=== PATIENT | female | born 1945 | race Caucasian/White ===

== ENCOUNTER 2019-06-12 11:03 | Inpatient (IN) ==
--- NOTE | 2019-06-12 11:40 | Diag Imaging Result Doc PS360 ---
EXAM: CHEST-1 VIEW 06/12/2019 HISTORY: poss pneumothorax TECHNIQUE: AP upright chest at 1126 COMMENT: There is a large right pneumothorax which appears to be under tension with shift of the mediastinum to the left. There is increased atelectasis in the lingula. There is apparent adhesion of the apex of the lung to the lateral pleura. There is ill-defined opacity present in the right apex which was also present on 06/10/2019. IMPRESSION: Large right pneumothorax under tension. The findings were discussed with Babar Stewart MD at 06/12/2019 11:38 AM. Electronically signed by Lee Moncada 06/12/2019 11:38 AM
[2019-06-12] MEDS ORDERED: NS 1,000 ML IV ONE (11:53)
[2019-06-12] MEDS ORDERED: DIPRIVAN 1% IV ONE (11:59)
[2019-06-12 12:07] LABS: BASO# 0.11 X1000 (0.0-0.2); BASO% 0.6 % (0.0-0.8); EOS# 0.16 X1000 (0.0-0.7); EOS% 0.9 % (0.0-10.0); HEMATOCRIT 33.9 % (37.0-47.0); HEMOGLOBIN 10.2 g/dL (12.0-16.0); IMM GRAN# 0.21 X1000 (0.0-0.04); IMM GRAN% 1.2 % (0.0-0.5); LYMPH# 1.13 X1000 (1.2-3.4); LYMPH% 6.4 % (20.5-51.1); MCH 34.9 PG (27-31); MCHC 30.1 g/dL (33-37); MCV 116.1 FL (81-99); MONO% 6.3 % (1.7-9.3); MPV 8.7 FL (7.4-10.4); NEUT# 14.82 X1000 (1.4-6.5); NEUT% 84.6 % (42.2-75.2); PLT 401 X1000 (130-400); RBC 2.92 XMIL (4.2-5.4); RDW 16.9 % (11.5-14.5); WBC 17.53 X1000 (4.8-10.8)
[2019-06-12 12:19] LABS: INR 1.02; PROTIME 13.5 Seconds (11.0-16.0)
[2019-06-12 12:20] LABS: PTT 27.6 Seconds (22.3-41.8)
[2019-06-12 12:34] LABS: AGAP 14; ALB/GLOB RATIO 1.1; ALBUMIN 3.8 g/dL (3.5-5.0); ALKALINE PHOSPHATASE 91 U/L (32-104); BUN 26 mg/dL (8-22); CALCIUM 8.9 mg/dL (8.8-10.2); CHLORIDE 100 mmol/L (98-107); CK PROFILE 110 U/L (24-173); COSMO 278; CREATININE 0.9 mg/dL (0.5-0.9); ESTIMATED GFR > 60; GLUCOSE 149 mg/dL (70-104); GOT 24 U/L (10-30); GPT 10 U/L (10-36); POTASSIUM 4.9 mmol/L (3.5-5.1); SODIUM 135 mmol/L (136-145); TCO2 21 mmol/L (25-35); TOTAL PROTEIN 7.4 g/dL (6.3-8.3)
--- NOTE | 2019-06-12 13:13 | Diag Imaging Result Doc PS360 ---
EXAM: CHEST-1 VIEW 06/12/2019 HISTORY: CONFORMATION OF CHEST TUBE PLACEMENT TECHNIQUE: AP portable upright at 1255 COMMENT: There is a right chest tube. The pneumothorax which was present previously on 1126 has been evacuated. The cavitary mass in the right upper lobe is again noted. There is some residual atelectasis in the right middle lobe. IMPRESSION: Resolution of right pneumothorax. Electronically signed by Lee Moncada 06/12/2019 1:10 PM
--- NOTE | 2019-06-12 14:00 | Diag Imaging Result Doc PS360 ---
EXAM: CHEST-1 VIEW 06/12/2019 HISTORY: repeat for chest tube placement, decreased 02 sat TECHNIQUE: AP upright portable at 1348 COMMENT: The right chest tube is again noted. There is a small amount of residual apical pneumothorax. The cavitary mass in the right apex is again noted. There may be a small amount of fluid in the costophrenic sulcus. There is slightly increased interstitial markings in the lung bases compared to the previous study at 1255. IMPRESSION: Small right pleural effusion. Minimal right apical pneumothorax. Mild interstitial pulmonary edema. Electronically signed by Lee Moncada 06/12/2019 1:57 PM
[2019-06-12] MEDS ORDERED: MORPHINE IV ONE (16:32)
[2019-06-12 17:53] LABS: URINE SOURCE CLEAN CATCH
[2019-06-12] MEDS ORDERED: MORPHINE IV PRN ×2 (17:53→22:59)
[2019-06-12 18:03] LABS: BILIRUBIN URINE NEGATIVE (NEGATIVE); BLOOD URINE NEGATIVE (NEGATIVE); COLOR YELLOW; GLUCOSE URINE NEGATIVE (NEGATIVE); KETONE URINE NEGATIVE (NEGATIVE); LEUKOCYTES URINE TRACE (NEGATIVE); NITRITE URINE NEGATIVE (NEGATIVE); PROTEIN URINE TRACE mg/dL (NEGATIVE); SP GRAVITY URINE 1.018; TURBIDITY URINE CLEAR (CLEAR); UROBILINOGEN URINE NORMAL (NORMAL)
[2019-06-12 18:04] LABS: UR EPITHELIAL CELLS <10 /HPF (<10); URINE BACTERIA NEGATIVE /HPF; URINE RBC <10 /HPF (<10); URINE WBC <10 /HPF (<10)
--- NOTE | 2019-06-12 18:27 | HISTORY AND PHYSICAL ---
CHIEF COMPLAINT: Shortness of breath. This is a 73-year-old female, she has a history of small cell lung cancer. She underwent biopsy I think on the . Apparently she had a small pneumothorax at that time but it did not expand. She was asymptomatic. She was sent home. Since being at home of course she has had more shortness of breath. It progressed to severe shortness of breath. Today's chest x-ray on admission showed a large right pneumothorax consistent with tension pneumothorax and with mediastinal shift. Chest tube was placed per Dr. Stewart in the ER and she was admitted for further management. She is a patient of Dr. Ambriz, I am not sure who her primary doctor is, it is indicated but in any case. PAST MEDICAL HISTORY: Again small cell lung cancer. No clear COPD. Hypothyroidism but also reportedly in the past hypertension. SOCIAL HISTORY: She has a 40 pack year history of smoking. No alcohol. ALLERGIES: I do not think she is taking anything. She has no known drug allergies. FAMILY HISTORY: It looks like alcohol history in the past in her family not in herself, breast cancer in a mother. She has a son with type 2 diabetes. MEDICATIONS: She is on just Synthroid. REVIEW OF SYSTEMS: Otherwise negative x10 point review of systems. PHYSICAL EXAM: Blood pressure 142/81, heart rate of 88, respiratory rate 22, temperature was 98.5. GENERAL: Well-developed female in no distress. CARDIOVASCULAR: Regular rate and rhythm. PULMONARY: Bilateral breath sounds clear to auscultation. GI: Was soft, nontender, nondistended. Bowel sounds were positive. EXTREMITIES: No clubbing or cyanosis. LYMPHATIC: No peripheral edema. NEUROLOGICAL: Nonfocal . LABORATORY DATA: White count is 17, hemoglobin and hematocrit 10 and 33, platelets 401,000. Basic was okay. Urine is pending. Chest x-ray showed tension pneumo and then resolution of pneumo with chest tube placement. ASSESSMENT: 73-year-old female with small-cell lung cancer, possibly recurrent. We are waiting on her biopsy who presents from home with issues related to breathing consistent with tension pneumothorax which is probably iatrogenic although I do think she probably has some chronic obstructive pulmonary disease. 1. Tension pneumothorax. She has a chest tube. We will get surgery to assist with getting rid of the chest tube. 2. Acute hypoxic respiratory failure. I think she probably has some underlying chronic obstructive pulmonary disease, will continue breathing treatments, breathing exercises and follow. 3. Hypothyroidism, will check her thyroid function, continue regular medications. 4. Small cell lung cancer. We will let Dr. Ambriz know she is here and follow up on pathology results for other treatments. DISPOSITION: Pending her clinical status. cc: Hebert Rehman MD
[2019-06-12] MEDS ORDERED: ZOFRAN IV PRN (18:31)
[2019-06-12] MEDS ORDERED: DUONEB (A & A) INH PRN (18:31)
--- NOTE | 2019-06-12 20:29 | GENERAL SURGERY CONSULTATION ---
DATE: 06/12/2019 CHIEF COMPLAINT: Shortness of breath. REASON FOR CONSULTATION: Right-sided pneumothorax chest tube. HISTORY OF PRESENT ILLNESS: This 73-year-old female who had a recent biopsy for a right-sided lung mass on Sunday. She had a small pneumothorax postop. She developed increased shortness of breath yesterday and it became more severe today. She came to the ER where a large right-sided pneumothorax with tension changes was found. Chest tube was placed by Dr. Stewart in the emergency department. I was consulted for management. MEDICAL HISTORY: Extensive smoking history with oblique presumed small cell lung cancer. No diagnosis of COPD, but she does have emphysematous changes, hypothyroidism, and hypertension. SURGICAL HISTORY: She has had no thoracic procedures, recent chest tube. Denies any vascular procedures. SOCIAL HISTORY: Forty pack year smoking. No alcohol. FAMILY HISTORY: Reviewed and noncontributory. REVIEW OF SYSTEMS: A 10-point review of systems performed and negative otherwise mentioned in the HPI. PHYSICAL EXAMINATION: Vital signs: She is afebrile. Pulse is 89, blood pressure 146/81, oxygen saturation 94% on 4 L. General: She is chronically ill-appearing, but in no acute distress. HEENT: No scleral icterus. No cervical mass. Cardiovascular: Normal rate. Pulmonary: She has a right-sided chest tube to -20 suction. There is an occasional mild air leak that goes away with the place of water seal. No output. Chest tube dressings in place. Abdomen: Soft, nontender. Integument: Warm and dry. Musculoskeletal: She is cachectic. Psychiatric: Appropriate affect. Neurologic: No gross deficits. Lymphatic: No cervical or inguinal adenopathy. LABORATORIES: White count 17, hematocrit 33, platelets 401,000. INR is 1.02, creatinine 0.9. LFTs are normal. Albumin is 3.8. Urinalysis does show trace leukocytes. I reviewed her pre and post chest tube placement x-rays. Shows a large right-sided pneumothorax, mediastinal shift and then subsequent resolution after chest tube placed. ASSESSMENT AND PLAN: This is a 73-year-old female with pneumothorax after percutaneous lung biopsy. She has chest tube placed by the emergency staff. We will follow this. If her x-ray shows good expansion tomorrow we will water seal the tube and possibly removed 24 hours later. We will continue respiratory therapy with nebulizer treatments, pulmonary toileting. I will follow along. cc: Desi Schwartz MD
[2019-06-12] MEDS: DUONEB (A & A) INH SCH (22:03)
[2019-06-12] MEDS: MORPHINE IV PRN (23:15)
[2019-06-13] MEDS: DUONEB (A & A) INH SCH ×4 (04:00→21:50)
[2019-06-13 07:07] LABS: BASO# 0.06 X1000 (0.0-0.2); BASO% 0.6 % (0.0-0.8); EOS# 0.32 X1000 (0.0-0.7); EOS% 2.9 % (0.0-10.0); HEMATOCRIT 31.3 % (37.0-47.0); IMM GRAN# 0.05 X1000 (0.0-0.04); IMM GRAN% 0.5 % (0.0-0.5); LYMPH# 0.81 X1000 (1.2-3.4); LYMPH% 7.5 % (20.5-51.1); MCHC 28.8 g/dL (33-37); MCV 118.1 FL (81-99); MONO# 0.77 X1000 (0.11-0.59); MONO% 7.1 % (1.7-9.3); MPV 8.8 FL (7.4-10.4); NEUT# 8.84 X1000 (1.4-6.5); NEUT% 81.4 % (42.2-75.2); PLT 352 X1000 (130-400); RBC 2.65 XMIL (4.2-5.4); RDW 16.9 % (11.5-14.5); WBC 10.85 X1000 (4.8-10.8)
[2019-06-13 07:31] LABS: AGAP 11; ALB/GLOB RATIO 0.9; ALBUMIN 3.3 g/dL (3.5-5.0); ALKALINE PHOSPHATASE 87 U/L (32-104); BUN 19 mg/dL (8-22); CHLORIDE 107 mmol/L (98-107); COSMO 289; CREATININE 0.8 mg/dL (0.5-0.9); ESTIMATED GFR > 60; GLUCOSE 130 mg/dL (70-104); GOT 16 U/L (10-30); GPT 7 U/L (10-36); SODIUM 143 mmol/L (136-145); TCO2 25 mmol/L (25-35); TOTAL BILIRUBIN 0.36 mg/dL (0.20-1.00); TOTAL PROTEIN 6.9 g/dL (6.3-8.3)
[2019-06-13 07:32] LABS: EOS 2 % (1-10); LYMPHS 10 % (21-51); MONO 7 % (1-9); SEGS 81 % (42-75)
[2019-06-13] MEDS ORDERED: BLISTEX MEDICATED BERRY LIP BALM TOP PRN (07:35)
--- NOTE | 2019-06-13 10:06 | Diag Imaging Result Doc PS360 ---
EXAM: CHEST-PORTABLE 06/13/2019 HISTORY: ptx TECHNIQUE: AP portable upright at 1054 COMMENT: There is a chest tube on the right. The pneumothorax which has been previously described has increased in size, measuring 9 mm at the apex and also being visible at the base, which was not previously the case. There is no evidence of shift of the mediastinum. There is increased atelectasis in the right lower lobe. There continues to be increased interstitial markings generally. IMPRESSION: Worsened right pneumothorax. Electronically signed by Lee Moncada 06/13/2019 10:04 AM
--- NOTE | 2019-06-13 11:13 | PROGRESS NOTE ---
DATE: 06/13/2019 SUBJECTIVE: Overall, Ms. Meyer appears to be doing well and has no immediate complaints. She presented to the emergency department with severe shortness of breath secondary to a lung biopsy that was performed on Sunday of this week. Chest x-ray in the emergency department revealed a tension pneumothorax that caused the right lung to collapse, which quickly prompted the emergency department to place a chest tube into her right pleural cavity in hopes of reinflating the lung. The procedure had no immediate complications, and she was quickly transferred to the [facility] for resolution of the pneumothorax. Questioning of the patient revealed that she is in no apparent distress. She reports no symptoms of shortness of breath. She is alert and oriented to time and place, and is in good spirits given her diagnosis of small cell lung cancer that she has been battling for the previous 2 years. REVIEW OF SYSTEMS: A 10 point review of systems was conducted with the patient and pertinent positives were listed above in the HPI. OBJECTIVE: Cardiovascular: Heart clear to murmurs, rubs and gallops. Pulmonary: Yesterday, a chest x-ray revealed that the chest tube placed in the emergency department was in the correct place in the pleural cavity, and was beginning to resolve the tension pneumothorax. However, this morning a repeat chest x-ray revealed that the pneumothorax has increased in size, measuring at 9 mm to the apex with increased atelectasis in the right lower lobe, which the radiology team believes indicates that her right pneumothorax has worsened since her admission to the emergency department. I did not go over or psychotherapist counselor the patient on these results seeing as she appears to be doing well and in no acute distress and has no complaints of shortness of breath. I will leave this to the physicians to do in hopes that by the time we return to evaluate Ms. Meyer again, hopefully her pneumothorax will resolve. Vital signs: Most recent vital signs include a pulse rate of 63, respiratory rate of 15, a temperature of 97.9 degrees and blood pressure of 137/72, an O2 saturation by pulse oximetry of 96. LABORATORY STUDIES: Hematologic studies include a white blood cell count of 10.85 and a red blood cell count of 2.65, a hemoglobin of 9, a hematocrit of 31.3, an MCV of 118.1 and MCH of 34, a platelet count of 352. Pertinent chemistry studies include a blood sodium of 143, potassium of 4, chloride of 107, carbon dioxide of 25, and anion gap of 11. A BUN of 19 and creatinine of 0.8. Her blood glucose was mildly elevated at 130 and her calcium was 8. A urinalysis performed yesterday revealed trace protein in the urine and trace urine leukocytes. ASSESSMENT AND PLAN: 1. Worsening right-sided tension pneumothorax. It is concerning that the chest x-ray revealed that her lung continues to get worse, even though she exhibits no complaints of shortness of breath, no difficulty breathing or a decline in pulse oximetry. We will consult Surgery in hopes that management of the chest tube again will cause her lung pneumothorax to resolve. 2. Potential urinary tract infection. Her positive leukocytes within the urine that was collected in the emergency department yesterday is concerning, seeing as this is an elderly patient with a pneumothorax with ongoing battles with small-cell lung cancer, who is on chemotherapy. A urinary tract infection would certainly worsen Ms. Meyer's prognosis if it were to become severe. I would recommend repeating a clean-catch urinalysis to evaluate if there is any acute infection within the urinary tract and pending those results, probably treat if there is an infection. Thank you very much for allowing me to be your student and thank you for allowing me to see this patient. Dictated by Lena Griffin Medical Student for Hebert Rehman MD This chart was documented by, Lena Griffin Medical Student and accurately reflects the services performed, treatment plan and medical decisions as attested by the providers signature Hebert Rehman MD. cc: Hebert Rehman MD MTDD
--- NOTE | 2019-06-13 11:31 | GENERAL SURGERY PROGRESS NOTE ---
DATE: 06/13/2019 SUBJECTIVE: Feels better. She is still on supplemental O2. No fevers, no tachycardia overnight. Chest tube is in place. There is no air leak. Minimal output. OBJECTIVE: I reviewed her labs, reviewed her x-ray. It shows increased pneumothorax this morning when compared to yesterday evening after chest tube placement. The sentinel hole is within chest wall, but it is closes. ASSESSMENT AND PLAN: A 73-year-old female with right-sided pneumothorax after percutaneous lung biopsy. She had a chest tube placed by the emergency department. The tube seems to be controlling the pneumothorax well last night, but her lungs have fallen away. I did increase the suction to -40. There were some air bubbles at this point, but she did not have an air leak. She from a hemodynamic and respiratory standpoint is near her baseline. We will keep the tube to suction -40 today. Repeat her chest x-ray in the morning. Unfortunately, she may ultimately require a more inferiorly and posteriorly placed chest tube, which we could do in the operating room if it fails to resolve with this current tube. Dr. Waters is occupational therapist assistants this weekend, and he will follow the patient. I have given him sign-out on her. cc: Desi Schwartz MD
[2019-06-13] MEDS: MORPHINE IV PRN ×2 (12:22→20:35)
[2019-06-13] MEDS: TYLENOL PO PRN ×2 (12:23→20:35)
--- NOTE | 2019-06-13 17:15 | HEMO/ONC CONSULTATION ---
DATE: 06/13/2019 ADMITTING PHYSICIAN: Dr. Rehman. REQUESTING PHYSICIAN: Dr. Rehman. We appreciate this consult. CHIEF COMPLAINT: Non-small cell lung cancer. HISTORY OF PRESENT ILLNESS: Ms. Kenya Meyer is a pleasant 73-year-old female well known to Dr. Ambriz with a history of non-small cell lung cancer, squamous cell type, status post 2 cycles of Gemzar and Taxotere with worsening disease. The patient underwent a CT-guided biopsy of the nodule and suffered a tension pneumothorax which began very small but progressively worsened. She was referred to [facility] Emergency Department where she was found to have a large pneumothorax and chest tube was placed in the ER. The patient has had improvement, but today has increasing pneumothorax volume. Surgery is currently following. We are consulted as the patient is well known to us. PAST MEDICAL HISTORY: 1. Non-small cell lung cancer, squamous cell type. 2. Hypothyroidism. 3. Hypertension. SOCIAL HISTORY: The patient has a 40 pack-year history of smoking. She does not use alcohol or illicit drugs. FAMILY HISTORY: Significant for breast cancer in the patient's mother. MEDICATIONS ON ADMISSION: Synthroid. ALLERGIES: The patient has no known drug allergies. REVIEW OF SYSTEMS: A 14 point review of systems was obtained and is negative except for mentioned in HPI. PHYSICAL EXAMINATION: General: Ms. Meyer is a pleasant 73-year-old female, lying supine in bed in no immediate distress. Vital Signs: Temperature 97.9 degrees, blood pressure 137/72, heart rate 63, respirations are 15, O2 saturation is 96% on 5 L nasal cannula O2. HEENT: Normocephalic, atraumatic. Mucous membranes slightly pale and moist. Sclerae is anicteric. Extraocular movements intact. Neck: Supple. Lungs: Clear to auscultation bilaterally except for right lower lobe with decreased breath sounds. Abdomen: Soft, nondistended, nontender. Bowel sounds positive all quadrants. No rebound or guarding noted. Extremities: Without clubbing, cyanosis, or edema. Dermatologic: No rashes, bruises or lesions. Neurologic: The patient is awake, alert, oriented x3. She has no focal deficit. LABORATORY DATA: Hemoglobin 9.0, hematocrit 31.3, white blood cell count is 10.85, platelets 352,000. Sodium 143, potassium 4.0, chloride 107, CO2 is 25, BUN 19, creatinine 0.8 and glucose is 130, calcium is 8.0. TSH is 13.09. ASSESSMENT AND PLAN: 1. Non-small cell lung cancer of squamous cell type, status post 2 cycles of Gemzar and Taxotere with worsening disease. The patient is status post CT-guided biopsy of nodule, pathology is pending. 2. Tension pneumothorax status post chest tube placement with worsening on today's chest x-rays. Surgery is currently following. 3. Acute hypoxemic respiratory failure. Would continue breathing treatments and spirometer. Stable at this time. 4. Hypothyroidism, stable. 5. We will follow along with you and make further recommendations pending outcomes. The above reflects the history, exam, assessment, and plan of Dr. Ambriz. Dictated by WILLIE Vernon for Adam Ambriz MD cc: WILLIE Vernon MD
[2019-06-14 00:32] LABS: URINE SOURCE CLEAN CATCH
[2019-06-14 00:40] LABS: BILIRUBIN URINE NEGATIVE (NEGATIVE); BLOOD URINE NEGATIVE (NEGATIVE); COLOR YELLOW; GLUCOSE URINE NEGATIVE (NEGATIVE); KETONE URINE NEGATIVE (NEGATIVE); LEUKOCYTES URINE SMALL (NEGATIVE); NITRITE URINE NEGATIVE (NEGATIVE); PH URINE 6.5; PROTEIN URINE TRACE mg/dL (NEGATIVE); SP GRAVITY URINE 1.017; TURBIDITY URINE CLEAR (CLEAR); UR EPITHELIAL CELLS <10 /HPF (<10); URINE BACTERIA NEGATIVE /HPF; URINE RBC <10 /HPF (<10); URINE WBC <10 /HPF (<10); UROBILINOGEN URINE NORMAL (NORMAL)
[2019-06-14] MEDS ORDERED: LOVENOX SUBQ SCH (06:00)
[2019-06-14] MEDS: SYNTHROID PO SCH (06:02)
[2019-06-14] MEDS: DUONEB (A & A) INH SCH ×4 (06:28→22:32)
[2019-06-14 06:29] LABS: BASO# 0.04 X1000 (0.0-0.2); BASO% 0.3 % (0.0-0.8); EOS# 0.68 X1000 (0.0-0.7); EOS% 4.5 % (0.0-10.0); HEMATOCRIT 32.8 % (37.0-47.0); HEMOGLOBIN 9.6 g/dL (12.0-16.0); IMM GRAN# 0.05 X1000 (0.0-0.04); IMM GRAN% 0.3 % (0.0-0.5); LYMPH% 3.3 % (20.5-51.1); MCH 34.4 PG (27-31); MCHC 29.3 g/dL (33-37); MCV 117.6 FL (81-99); MONO# 1.28 X1000 (0.11-0.59); MONO% 8.4 % (1.7-9.3); MPV 8.9 FL (7.4-10.4); NEUT# 12.62 X1000 (1.4-6.5); NEUT% 83.2 % (42.2-75.2); PLT 352 X1000 (130-400); RBC 2.79 XMIL (4.2-5.4); RDW 16.9 % (11.5-14.5); WBC 15.17 X1000 (4.8-10.8)
[2019-06-14 06:49] LABS: AGAP 11; BUN 13 mg/dL (8-22); CALCIUM 8.5 mg/dL (8.8-10.2); CHLORIDE 105 mmol/L (98-107); COSMO 285; CREATININE 0.7 mg/dL (0.5-0.9); ESTIMATED GFR > 60; GLUCOSE 136 mg/dL (70-104); SODIUM 142 mmol/L (136-145); TCO2 26 mmol/L (25-35)
--- NOTE | 2019-06-14 08:31 | Diag Imaging Result Doc PS360 ---
EXAM: CHEST-PORTABLE INDICATION: dyspnea TECHNIQUE: One view COMPARISON: 06/13/2019 FINDINGS: The right chest tube is in stable position. The right-sided pneumothorax has decreased significantly during the interval. It is barely perceptible at the right lung apex. There is now an increase in fluid at the right lung base, however. Increased interstitial markings bilaterally are unchanged. Cardiac silhouette is stable. IMPRESSION: Interval improvement of pneumothorax on the right but increase in pleural fluid at the right lung base. Electronically signed by Shahab Serna 06/14/2019 8:28 AM
[2019-06-14] MEDS ORDERED: SYNTHROID PO SCH (09:00)
[2019-06-14] MEDS: TYLENOL PO PRN (13:47)
--- NOTE | 2019-06-14 15:48 | PROGRESS NOTE ---
DATE: 06/14/2019 SUBJECTIVE: Patient has no major complaints. OBJECTIVE: Blood pressure 136/68, heart rate of 107, respiratory rate of 17, temperature 98.5 degrees, 98% on 3 L.Cardiovascular: Regular rate and rhythm. Pulmonary: Bilateral breath sounds clear to auscultation. GI: Soft, nontender, nondistended. Bowel sounds were positive. Extremity: No clubbing or cyanosis. Lymphatic Exam: No peripheral edema. Neurological: Nonfocal. LABORATORY DATA: White count is 15, hemoglobin and hematocrit 9 and 32, platelets 352,000. PROBLEM LIST: 1. Pneumothorax, likely iatrogenic after lung biopsy. Her chest x-ray today though looks much improved so I feel good about treatment. We will continue to monitor. Surgery is consulted. So, really kind of awaiting their recommendations hopefully to water-seal soon at their discretion. 2. Small cell lung cancer. Aware. Treatment on hold. She is getting chemotherapy. She is having a little bit of hemoptysis. I am going to hold her Lovenox for 24 hours but we will need to reconsider starting it if stable because she is high risk for DVT. 3. Possible UTI. We are still waiting on culture results. She is not on any antibiotics. She does have a white count, may start Rocephin empirically just until we get the kidney data back. DISPOSITION: Pending her clinical status. She also has a fairly significant O2 requirement, so we will continue to follow. cc: Hebert Rehman MD
[2019-06-14] MEDS: MIRALAX PO SCH (15:58)
[2019-06-14] MEDS: ROCEPHIN 1 GM in NS 50 ML IV SCH (15:58)
[2019-06-14] MEDS: LACTULOSE PO SCH (20:06)
--- NOTE | 2019-06-14 20:14 | GENERAL SURGERY PROGRESS NOTE ---
DATE: 06/14/2019 SUBJECTIVE: The patient feels better today. She denies shortness of breath. OBJECTIVE: She is afebrile. Vital signs are stable.General: She is awake and alert, in no acute distress. Respiratory: Bilateral breath sounds. No work of breathing. No air leak in the chest tube. IMAGING: The chest x-ray shows improvement in the pneumothorax, but increase in the right basilar effusion. ASSESSMENT AND PLAN: A 73-year-old female with right pneumothorax, status post chest tube placement. Overall the placement is marginal, but it appears to be helping resolve the pneumothorax. We will continue with suction at -40 and repeat chest x-ray tomorrow. cc: Phoenix Waters MD
[2019-06-14] MEDS: NORCO-7.5 PO PRN (22:41)
[2019-06-15] MEDS: DUONEB (A & A) INH SCH ×4 (05:43→23:01)
[2019-06-15 05:56] LABS: BASO# 0.04 X1000 (0.0-0.2); BASO% 0.2 % (0.0-0.8); EOS% 6.2 % (0.0-10.0); HEMATOCRIT 32.9 % (37.0-47.0); HEMOGLOBIN 9.6 g/dL (12.0-16.0); IMM GRAN# 0.05 X1000 (0.0-0.04); IMM GRAN% 0.3 % (0.0-0.5); LYMPH% 4.7 % (20.5-51.1); MCHC 29.2 g/dL (33-37); MCV 116.7 FL (81-99); MONO# 1.41 X1000 (0.11-0.59); MONO% 7.3 % (1.7-9.3); MPV 8.9 FL (7.4-10.4); NEUT# 15.69 X1000 (1.4-6.5); NEUT% 81.3 % (42.2-75.2); PLT 321 X1000 (130-400); RBC 2.82 XMIL (4.2-5.4); RDW 16.8 % (11.5-14.5); WBC 19.29 X1000 (4.8-10.8)
[2019-06-15 06:09] LABS: AGAP 9; BUN 14 mg/dL (8-22); CALCIUM 8.1 mg/dL (8.8-10.2); CHLORIDE 105 mmol/L (98-107); COSMO 283; CREATININE 0.7 mg/dL (0.5-0.9); ESTIMATED GFR > 60; GLUCOSE 117 mg/dL (70-104); POTASSIUM 4.4 mmol/L (3.5-5.1); SODIUM 141 mmol/L (136-145); TCO2 27 mmol/L (25-35)
[2019-06-15 06:37] LABS: EOS 5 % (1-10); LYMPHS 5 % (21-51); MONO 6 % (1-9); SEGS 84 % (42-75)
[2019-06-15] MEDS: SYNTHROID PO SCH (06:42)
--- NOTE | 2019-06-15 08:17 | Diag Imaging Result Doc PS360 ---
EXAM: CHEST-PORTABLE INDICATION: dyspnea TECHNIQUE: One view COMPARISON: 06/14/2019 FINDINGS: The right chest tube is in stable position with the tip just within the thoracic cavity. No discrete residual pneumothorax can be identified on the current study. Small volume pleural fluid at the right lung base is again noted. Patchy consolidation throughout the right lung is approximately stable given slight differences in positioning. Consolidation at the left lower lung zone has improved slightly. IMPRESSION: Slight improvement on the left. No visible right pneumothorax is appreciated on the current study. Stable chest, otherwise. Electronically signed by Shahab Serna 06/15/2019 8:15 AM
[2019-06-15] MEDS: MIRALAX PO SCH (10:24)
[2019-06-15] MEDS: LACTULOSE PO SCH ×2 (10:25→20:01)
[2019-06-15] MEDS: NORCO-7.5 PO PRN (10:25)
[2019-06-15] MEDS: ROCEPHIN 1 GM in NS 50 ML IV SCH (15:18)
--- NOTE | 2019-06-15 16:17 | PROGRESS NOTE ---
DATE: 06/15/2019 SUBJECTIVE: Patient has no major complaints. She is looking pretty good. LABORATORY: White count is 19, hemoglobin and hematocrit 9.9 and 32, platelets 321,000. I am not sure if this is related to Neulasta. She has had 2 cycles of Gemzar and Taxotere, so I am not sure if she has had GCSF agent given, but in any case. Basic was normal. PROBLEM LIST: 1. Pneumothorax. She looks like she is doing better. X-rays better. Hopefully, we can decrease her pressures. 2. Recurrent small cell lung cancer. She is status post chemotherapy. We are going to continue to monitor. 3. Possible urinary tract infection. Urine cultures negative but her white count is still elevated. I will keep her on Rocephin for the time being, but I do not think she has a clear infection right now in any case. cc: Hebert Rehman MD
--- NOTE | 2019-06-16 04:02 | GENERAL SURGERY PROGRESS NOTE ---
DATE: 06/15/2019 SUBJECTIVE: The patient has no new complaints today. She is breathing without difficulty. OBJECTIVE: Vital Signs: She is afebrile. Vital signs are stable. General: She is awake, alert, no acute distress. Respiratory: Bilateral equal breath sounds. No work of breathing. Chest tube was without air leak. IMAGING: Chest x-ray shows no pneumothorax. ASSESSMENT AND PLAN: A 73-year-old female with a right-sided pneumothorax which appears to be improved or resolved after chest tube placement. We will decrease the suction down to -20 tonight. cc: Phoenix Waters MD
[2019-06-16] MEDS: DUONEB (A & A) INH SCH ×4 (05:29→22:30)
[2019-06-16] MEDS: SYNTHROID PO SCH ×2 (05:39→06:19)
--- NOTE | 2019-06-16 06:43 | Diag Imaging Result Doc PS360 ---
CHEST-PORTABLE - 06/16/2019 INDICATION: dyspnea COMPARISON: 06/15/2019 FINDINGS: Stable dense focal infiltrate at the right hilum. Stable pulmonary scarring. Stable cavitary area in the right lung apex. Stable severe COPD. Stable nodular density in the left lung. IMPRESSION: No change from prior. Electronically signed by Pankaj Mcdonough 06/16/2019 6:40 AM
[2019-06-16] MEDS: LACTULOSE PO SCH ×2 (09:58→20:07)
[2019-06-16] MEDS: MIRALAX PO SCH (09:59)
[2019-06-16] MEDS: ROCEPHIN 1 GM in NS 50 ML IV SCH (16:16)
[2019-06-16] MEDS ORDERED: NS 500 ML ONE (16:30)
--- NOTE | 2019-06-16 16:56 | PROGRESS NOTE ---
DATE: 06/16/2019 SUBJECTIVE: She looks well, like more energy. OBJECTIVE: Vital Signs: Blood pressure 116/68, heart rate of 108, respiratory rate 16, temperature 98.7 degrees, 100% on 3 L. Cardiovascular: Regular rate and rhythm. Pulmonary: Bilateral breath sounds clear to auscultation. GI: Soft, nontender, nondistended. Bowel sounds are positive. LABORATORY: White count 19, hemoglobin 9 and hematocrit 32, platelets 321,000. Basic is normal. PROBLEM LIST: 1. Pneumothorax. She is iatrogenic. X-rays look better. Hopefully tomorrow, she is on water- seal now, we will be able to remove her tube. 2. Recurrent small cell lung cancer. She is on chemotherapy. We will continue to monitor closely. 3. Possible urinary tract infection. Her urine culture is negative, so I think it is less likely and I am not entirely sure her white count may not be related to other processes, but will repeat tomorrow. If stable, I may go ahead and stop antibiotics and anticipate discharge hopefully in the next 1 to 2 days. cc: Hebert Rehman MD
--- NOTE | 2019-06-16 16:58 | GENERAL SURGERY PROGRESS NOTE ---
DATE: 06/16/2019 SUBJECTIVE: She feels okay. She has continued to have a productive cough, but no significant shortness of breath. Stable on nasal cannula. OBJECTIVE: Vital Signs: No fevers. Pulse in the 90s, low 100s, blood pressure 116/68. General: She is alert. Right chest tube is in place. It is to -20 with no air leak minimal output. DIAGNOSTIC DATA: White count 19, hematocrit 32 creatinine 0.7. I reviewed her x-ray this morning and shows persistent chronic changes, no evidence of pneumothorax. ASSESSMENT AND PLAN: This is a 71-year-old female with right-sided pneumothorax after percutaneous biopsy. We will water seal her tube today and then remove it if her lung remains expanded. I do not detect air leak. cc: Desi Schwartz MD
[2019-06-17] MEDS: DUONEB (A & A) INH SCH ×4 (03:53→22:31)
[2019-06-17] MEDS: SYNTHROID PO SCH (06:13)
[2019-06-17 07:06] LABS: BASO# 0.04 X1000 (0.0-0.2); BASO% 0.4 % (0.0-0.8); EOS# 1.32 X1000 (0.0-0.7); EOS% 12.5 % (0.0-10.0); HEMATOCRIT 33.1 % (37.0-47.0); HEMOGLOBIN 9.6 g/dL (12.0-16.0); IMM GRAN# 0.04 X1000 (0.0-0.04); IMM GRAN% 0.4 % (0.0-0.5); LYMPH# 0.75 X1000 (1.2-3.4); LYMPH% 7.1 % (20.5-51.1); MCH 33.7 PG (27-31); MCV 116.1 FL (81-99); MONO# 0.81 X1000 (0.11-0.59); MONO% 7.6 % (1.7-9.3); MPV 8.8 FL (7.4-10.4); NEUT# 7.63 X1000 (1.4-6.5); PLT 350 X1000 (130-400); RBC 2.85 XMIL (4.2-5.4); RDW 16.2 % (11.5-14.5); WBC 10.59 X1000 (4.8-10.8)
[2019-06-17 07:29] LABS: AGAP 10; BUN 15 mg/dL (8-22); CALCIUM 7.6 mg/dL (8.8-10.2); CHLORIDE 101 mmol/L (98-107); COSMO 277; CREATININE 0.7 mg/dL (0.5-0.9); ESTIMATED GFR > 60; GLUCOSE 112 mg/dL (70-104); POTASSIUM 3.8 mmol/L (3.5-5.1); SODIUM 138 mmol/L (136-145); TCO2 27 mmol/L (25-35)
--- NOTE | 2019-06-17 08:52 | Diag Imaging Result Doc PS360 ---
CHEST-PORTABLE - 06/17/2019 INDICATION: ptx COMPARISON: 06/16/2019 FINDINGS: The right chest tube has been pulled out and is in the soft tissues. There is no visible pneumothorax. Lung volumes are improved. There are worsening right perihilar and right lower lobe infiltrates. Stable hazy interstitial infiltrates in the lung bases. Heart size remains grossly normal. IMPRESSION: 1. Right chest tube has been pulled out and ends in the soft tissues. No pneumothorax. 2. Worsening multifocal infiltrates in the right lung. Electronically signed by Pankaj Mcdonough 06/17/2019 8:49 AM
[2019-06-17] MEDS: NORCO-7.5 PO PRN (09:25)
[2019-06-17] MEDS: LACTULOSE PO SCH ×2 (09:25→21:04)
[2019-06-17] MEDS: MIRALAX PO SCH (09:25)
--- NOTE | 2019-06-17 15:24 | Diag Imaging Result Doc PS360 ---
CHEST-PORTABLE - 06/17/2019 3:13 PM INDICATION: chest tube removal COMPARISON: 8:35 AM FINDINGS: The right chest tube has been removed. No definite pneumothorax. There is continued worsening infiltrate diffusely throughout the right lung, and also in the left lung base. Heart size is top normal. No pneumothorax or pleural effusion. IMPRESSION: Right chest tube removal with no definite pneumothorax. Worsening diffuse bilateral infiltrates suggesting pulmonary edema and/or pneumonia. Electronically signed by Pankaj Mcdonough 06/17/2019 3:22 PM
[2019-06-17] MEDS: ROCEPHIN 1 GM in NS 50 ML IV SCH (15:50)
--- NOTE | 2019-06-17 17:40 | PROGRESS NOTE ---
DATE: 06/17/2019 SUBJECTIVE: Patient has no major complaints. OBJECTIVE: Vital signs: Blood pressure is 101/47, heart rate 94, respiratory rate 18, temperature 97.4 degrees. Cardiovascular: Regular rate and rhythm. Pulmonary: Bilateral breath sounds. Clear to auscultation. GI: Soft, nontender, nondistended. Bowel sounds are positive. LABORATORY: White count is 10, hemoglobin and hematocrit 9 and 33, platelets 350,000. Basic was normal. Chest x-ray showed no pneumonia, but she did have some multifocal infiltrates. PLAN: I am going to start her on some antibiotics and we may give her a dose of Lasix too because she has interstitial infiltrates developing there. Repeat chest x-ray and labs in the morning and then assess about discharge. cc: Hebert Rehman MD
[2019-06-17] MEDS: LASIX IV SCH (18:06)
--- NOTE | 2019-06-17 18:53 | GENERAL SURGERY PROGRESS NOTE ---
DATE: 06/17/2019 SUBJECTIVE: Feels better. Still coughing quite a productive cough. Chest x-ray this morning shows good expansion of the right lung with worsening infiltrates. Chest tube is in the soft tissues. PHYSICAL EXAMINATION: Chest: Chest tube is in the soft tissue. I removed it. An occlusive dressing was placed. LAB AND X-RAY DATA: Follow-up chest x-ray shows good expansion of the lungs. Her white count was 10 this morning, hematocrit 33, creatinine 0.7, and there is no reaccumulation of pneumothorax following chest x-ray. PLAN: Continue occlusive dressing for 48 hours to 72 hours. Antibiotics for pneumonia. Aggressive pulmonary toileting. cc: Desi Schwartz MD
[2019-06-17] MEDS: MAXIPIME 2 GM/NS 2 GM/100 ML IVPB IV SCH (20:58)
[2019-06-18] MEDS: DUONEB (A & A) INH SCH ×4 (03:30→15:25)
[2019-06-18] MEDS: SYNTHROID PO SCH (06:05)
--- NOTE | 2019-06-18 07:12 | Diag Imaging Result Doc PS360 ---
EXAM: CHEST-PORTABLE 06/18/2019 HISTORY: dyspnea TECHNIQUE: AP portable at 0631 COMMENT: There are patchy alveolar opacities in the right lower lobe and middle lobe and apparent ill-defined cavitary opacity in the right apex. These findings were all present on 06/17/2019. There is a lesser degree of ill-defined opacification in the lingula and left lower lobe which is also stable in appearance. Compared to the previous examination of 06/16/2019 there may be some improvement with regard to pneumatization of the right base. IMPRESSION: Pneumonia, particularly on the right with cavitary lesion in the right apex. The possibility of coexistent pulmonary edema cannot be excluded. Electronically signed by Lee Moncada 06/18/2019 7:09 AM
[2019-06-18 07:43] LABS: BASO# 0.02 X1000 (0.0-0.2); BASO% 0.2 % (0.0-0.8); EOS% 12.4 % (0.0-10.0); HEMATOCRIT 32.8 % (37.0-47.0); HEMOGLOBIN 9.5 g/dL (12.0-16.0); IMM GRAN# 0.03 X1000 (0.0-0.04); IMM GRAN% 0.3 % (0.0-0.5); LYMPH# 0.92 X1000 (1.2-3.4); LYMPH% 9.5 % (20.5-51.1); MCH 33.3 PG (27-31); MCV 115.1 FL (81-99); MONO# 0.79 X1000 (0.11-0.59); MONO% 8.2 % (1.7-9.3); MPV 8.8 FL (7.4-10.4); NEUT# 6.69 X1000 (1.4-6.5); NEUT% 69.4 % (42.2-75.2); PLT 370 X1000 (130-400); RBC 2.85 XMIL (4.2-5.4); RDW 16.2 % (11.5-14.5); WBC 9.65 X1000 (4.8-10.8)
[2019-06-18 08:04] LABS: BANDS 2 % (0-1); EOS 14 % (1-10); LYMPHS 10 % (21-51); MONO 10 % (1-9); SEGS 64 % (42-75)
[2019-06-18 08:13] LABS: AGAP 12; BUN 17 mg/dL (8-22); CALCIUM 7.8 mg/dL (8.8-10.2); CHLORIDE 100 mmol/L (98-107); COSMO 282; CREATININE 0.8 mg/dL (0.5-0.9); ESTIMATED GFR > 60; GLUCOSE 116 mg/dL (70-104); POTASSIUM 3.7 mmol/L (3.5-5.1); SODIUM 140 mmol/L (136-145); TCO2 28 mmol/L (25-35)
[2019-06-18] MEDS: MIRALAX PO SCH (09:22)
[2019-06-18] MEDS: LACTULOSE PO SCH ×2 (09:22→20:46)
[2019-06-18] MEDS: LASIX IV SCH (09:22)
[2019-06-18] MEDS: MAXIPIME 2 GM/NS 2 GM/100 ML IVPB IV SCH ×2 (09:22→20:45)
--- NOTE | 2019-06-18 16:59 | GENERAL SURGERY PROGRESS NOTE ---
DATE: 06/18/2019 SUBJECTIVE: Still having a very productive cough, O2 requirement, and is a little weak. OBJECTIVE: She is afebrile. Heart rate is 89 to low 100s. Blood pressure 104/59. Oxygen saturation 96%. She is on nasal cannula 3 to 4 L.General: She is alert, no increased work of breathing. Cardiovascular: Normal rate. LABORATORY DATA: I reviewed her labs. White count is 9, hematocrit 32, creatinine 0.8. IMAGING: I reviewed her x-ray, shows persistent pneumonia in the right apex, it is possible this is a mass and there is possibility of some edema. She is being diuresed. ASSESSMENT AND PLAN: A 73-year-old female, status post chest tube placement by the ER for iatrogenic pneumothorax after percutaneous lung biopsy. She has pneumonia and apparent pulmonary edema. She is being diuresed and treated for this, otherwise continue physical therapy and pulmonary toileting. I do not see any evidence of reaccumulation of the pneumothorax. cc: Desi Schwartz MD
--- NOTE | 2019-06-18 21:04 | PROGRESS NOTE ---
DATE: 06/18/2019 SUBJECTIVE: The patient has no major complaints. She is doing pretty well, all things considered. Her breathing is better. She looks better. She is without her chest tube, so she has made good progress there. OBJECTIVE DATA: Blood pressure is 109/63, heart rate of 102, respiratory rate 16, temperature 98 degrees.Cardiovascular: Regular rate and rhythm. Pulmonary: Diminished at the bases. GI: Soft, nontender, nondistended. Bowel sounds are positive. LABORATORY DATA: White count is 9, hemoglobin and hematocrit 9 and 32, platelets of 370,000. Basic was normal. Her chest x-ray today showed some patchy opacities, felt to be some improvement but no residual pneumoperitoneum. I think she is doing better. PROBLEM LIST: 1. Pneumothorax, which is felt to be associated with biopsy, that has resolved. 2. Pneumonia which could also be related to the cancer, but x-ray looks a little bit better. We will get another 1 tomorrow. Her white count is down. I think she is off O2 and has not had any fevers, so I think if her x-ray is good tomorrow, I think she should be able to go home tomorrow. 3. Recurrent small cell lung cancer. She is undergoing chemotherapy. Seems to be stable. DISPOSITION: Disposition-yeung, I think if things look better tomorrow, I anticipate discharge tomorrow. cc: Hebert Rehman MD
[2019-06-19] MEDS: DUONEB (A & A) INH SCH ×3 (04:12→16:03)
[2019-06-19] MEDS: SYNTHROID PO SCH (06:06)
[2019-06-19 07:04] LABS: BASO# 0.03 X1000 (0.0-0.2); BASO% 0.4 % (0.0-0.8); EOS# 1.34 X1000 (0.0-0.7); EOS% 17.3 % (0.0-10.0); HEMATOCRIT 37.6 % (37.0-47.0); HEMOGLOBIN 11.1 g/dL (12.0-16.0); IMM GRAN# 0.04 X1000 (0.0-0.04); IMM GRAN% 0.5 % (0.0-0.5); LYMPH# 1.18 X1000 (1.2-3.4); LYMPH% 15.2 % (20.5-51.1); MCH 33.8 PG (27-31); MCHC 29.5 g/dL (33-37); MCV 114.6 FL (81-99); MONO# 0.58 X1000 (0.11-0.59); MONO% 7.5 % (1.7-9.3); MPV 8.6 FL (7.4-10.4); NEUT# 4.59 X1000 (1.4-6.5); NEUT% 59.1 % (42.2-75.2); PLT 342 X1000 (130-400); RBC 3.28 XMIL (4.2-5.4); RDW 16.5 % (11.5-14.5); WBC 7.76 X1000 (4.8-10.8)
[2019-06-19 07:30] LABS: AGAP 16; BUN 20 mg/dL (8-22); CALCIUM 8.3 mg/dL (8.8-10.2); CHLORIDE 100 mmol/L (98-107); COSMO 279; CREATININE 0.7 mg/dL (0.5-0.9); ESTIMATED GFR > 60; GLUCOSE 113 mg/dL (70-104); POTASSIUM 3.9 mmol/L (3.5-5.1); SODIUM 138 mmol/L (136-145); TCO2 22 mmol/L (25-35)
--- NOTE | 2019-06-19 08:01 | Diag Imaging Result Doc PS360 ---
CHEST-2 VIEWS - 06/19/2019 INDICATION: hypoxia COMPARISON: 06/18/2019 FINDINGS: There has been slight improvement in the multifocal infiltrates in the right midlung and lung base. The left lung is grossly clear. Heart size is top normal. No pneumothorax or pleural effusion. IMPRESSION: Significant improvement in the multifocal infiltrates throughout the right lung. Electronically signed by Pankaj Mcdonough 06/19/2019 7:58 AM
[2019-06-19] MEDS: MIRALAX PO SCH (09:56)
[2019-06-19] MEDS: LASIX IV SCH (09:57)
[2019-06-19] MEDS: LACTULOSE PO SCH (09:57)
[2019-06-19] MEDS: MAXIPIME 2 GM/NS 2 GM/100 ML IVPB IV SCH (09:57)
--- NOTE | 2019-06-19 15:27 | GENERAL SURGERY PROGRESS NOTE ---
DATE: 06/19/2019 SUBJECTIVE: Improvement in aeration in the right lung. Her cough has become less productive. No fevers. No tachycardia. She has been weaned off O2. OBJECTIVE: On exam, she is alert. Right chest tube dressing is in place. IMAGING: I reviewed her chest x-ray which shows improvement. No pneumothorax. LABORATORY DATA: White count remains normal. Creatinine 0.7. ASSESSMENT AND PLAN: A 73-year-old female, now with a resolved right-sided pneumothorax. She has had some volume overload and pneumonia which is being adequately treated I feel. Continue aggressive pulmonary toileting. No plans for surgical intervention. cc: Desi Schwartz MD
[2019-06-19 15:31] VITALS: BP 107/84
--- NOTE | 2019-06-19 18:25 | DISCHARGE SUMMARY ---
ADMISSION DATE: 06/12/2019 DISCHARGE DATE: DISCHARGE DIAGNOSES: 1. Pneumothorax, presumably from a lung biopsy. 2. Pneumonia possibly re-expansion pulmonary edema. 3. Recurrent small cell lung cancer. 4. Protein calorie malnutrition moderate. PROCEDURES: She had a thoracostomy tube placed in the emergency room. HISTORY AND HOSPITAL COURSE: Briefly, this 73-year-old female who had recently undergone a lung biopsy about 2 days before came in with shortness of breath and was found to have a tension pneumothorax. Thoracostomy tube was placed in the ER. Surgery was consulted to assist in management. She was placed on pressure. The following day, though, her pneumothorax had reaccumulated, she was put on higher negative pressure, -40 cm. Heme/Onc was consulted as this was there patient. She is status post 2 cycles of Gemzar and Taxotere. This is a non-small cell cancer. In any case, patient improved. The most recent biopsy, which was on the , did not show cancer as far as I can tell. In any case, patient stabilized. Eventually tube was taken out; however, she developed some infiltrates. We initially kept her on some antibiotics because of leukocytosis. I do think she got a G-CSF stimulant. Her white count went up to 19,000 but then improved. She had been placed on cefepime. On the , I felt she was stable and we are going to go home today and discharge her on her regular medications. Right now that is just Synthroid 25, and I am going to give her Omnicef 300 for another 7 days, and we will continue to follow. She will need a follow-up chest x-ray in 1 to 2 weeks. This can be arranged per Dr. Ambriz. I would make sure she follows up with Dr. Ambriz next week. cc: Hebert Rehman MD
== END 2019-06-19 21:07 | disposition home or self-care (01) | DRG 199 ==
LOC: ED 11:03 → EDIPHOLD 16:56 → 2N 21:38 → 4N 06-15 19:27
PROVIDERS: ATTEND Internal Medicine